=== PATIENT | female | born 1980 | race Hispanic/Latino ===

== ENCOUNTER 2017-12-27 12:44 | Emergency (ER) | payer BC ==
[2017-12-27 14:29] LABS: BASO % 0.2 % (0.0-2.0); EOS # 0.1 K/uL (0.0-0.7); HEMOGLOBIN 11.6 g/dL (12.0-16.0); LYMPH # 1.3 K/uL (1.0-4.3); LYMPH % 14.8 % (20.0-40.0); MEAN CELL VOLUME 86.3 fl (81.0-99.0); MEAN CORPUSCULAR HEMOGLOBIN 30.5 pg (27.0-31.0); MEAN CORPUSCULAR HGB CONC 35.3 g/dL (33.0-37.0); MEAN PLATELET VOLUME 9.8 fl (7.2-11.7); MONO # 0.3 K/uL (0.0-0.8); MONO % 3.6 % (0.0-10.0); NEUT % 80.4 % (50.0-75.0); NRBC % 0.2 % (0.0-0.0); RBC 3.82 Mil/uL (3.80-5.20); RED CELL DISTRIBUTION WIDTH 14.2 % (11.5-14.5); WHITE BLOOD COUNT 8.8 K/uL (4.8-10.8)
[2017-12-27] MEDS: Sodium Chloride 0.9% 500 ML IV STA (14:29)
[2017-12-27 14:35] LABS: BLOOD UREA NITROGEN 7 mg/dl (7-17); CALCIUM 8.9 mg/dL (8.4-10.2); GFR AFRICAN-AMERICAN > 60; GFR NON-AFRICAN AMERICAN > 60
--- NOTE | 2017-12-27 14:50 | ED PDOC ---
HPI: Chest Pain Chief Complaint (Provider): Chest pain History Per: Patient, Family History/Exam Limitations: no limitations Onset/Duration Of Symptoms: Hrs Current Symptoms Are (Timing): Better Pain Scale Rating Of: 6 Quality: Sharp Associated Symptoms: denies: Nausea, Dyspnea, Diaphoresis, Syncope Additional History Per: Patient, Family <Ame Burciaga - Last Filed: 12/27/17 14:53> <Timmy Gunter - Last Filed: 12/27/17 15:22> Time Seen by Provider: 12/27/17 13:31 Chief Complaint (Nursing): Chest Pain Additional Complaint(s): 37 y/o female with no significant PMhx presents to Ed complaining of chest pain. patient states that today morning while she was sitting on the computer, she started having a sudden chest pain, abd pain, upper back pain radiating to her neck, and head. Denies dizziness, N/V, diaphoresis, palpitation or other associated complains. Patient states that the abdominal pain, and back pain has resolved, but still having chest pain, however has improved in intensity. Denies SOB, cough, palpitations. Also reports 2 episodes of watery non bloody diarrheas this morning. Denies urinary symptoms. Patient is at 22 weeks of GA, and denies any complications during prior or current . Denies vaginal bleeding, LOC or contractions. Reports good movements. (Ame Burciaga) Supervising Attending Note <Ame Burciaga - Last Filed: 12/27/17 14:53> - Supervising Attending Note The Documented history was done by the: Physician Plastic Machine Operator The documented physical exam was done by the: Physician Plastic Machine Operator The documented procedures were done by the: Physician Plastic Machine Operator - Attestation: I have personally seen and examined this patient.: Yes I have fully participated in the care of the patient.: Yes I have reviewed all pertinent clinical information: Yes <Timmy Gunter - Last Filed: 12/27/17 15:22> - Notes: Notes:: Chest pain. 22 wks preg. (Timmy Gunter) Past Medical History - Medical History PMH: No Chronic Diseases - Surgical History Surgical History: Cholecystectomy, Other surgeries: Umbilical hernia, right foot surgery <Ame Burciaga - Last Filed: 12/27/17 14:53> Reviewed: Nursing Documentation, Vital Signs - Medical History PMH: No Chronic Diseases - Family History Family History: States: Unknown Family Hx <Timmy Gunter - Last Filed: 12/27/17 15:22> Vital Signs: Last Vital Signs Temp 98.9 F 12/27/17 12:53 Pulse 99 H 12/27/17 12:53 Resp 18 12/27/17 12:53 BP 132/79 12/27/17 12:53 Pulse Ox 99 12/27/17 15:08 - Allergies Allergies/Adverse Reactions: Allergies Allergy/AdvReac Type Severity Reaction Status Date / Time Penicillins Allergy RASH Verified 12/27/17 12:52 RUPERTO Risk Score for UA/NSTEMI - RUPERTO Risk Score Age > 64: NO 3 or more CAD Risk Factors: NO Known CAD (Stenosis greater than 50%): NO Aspirin use in past 7 days: NO Severe Angina: NO EKG ST changes greater than 0.5mm: NO RUPERTO Score: 0 Risk %: 5% <Ame Burciaga - Last Filed: 12/27/17 14:53> Curb-65 Severity Score - CURB-65 Severity Score Confusion: No Respiratory Rate greater than/equal to 30: No Systolic BP <90 or Diastolic BP less than/equal 60mmHg: No Age >64: No Curb-65 Score: 0 Percentage 30-day mortality: 0.6% <Ame Burciaga - Last Filed: 12/27/17 14:53> Wells Criteria for PE - Wells Criteria for Pulmonary Embolism Clinical Signs and Symptoms of DVT: No P.E is #1 Diagnosis, or Equally Likely: Yes Heart Rate >100: No Immobilization at least 3 days;Surgery previous 4 weeks: No Previous, objectively diagnosed PE or DVT: No Hemoptysis: No Malignancy w/treatment within 6 months, or palliative: No Total Score: 1 <Ame Burciaga - Last Filed: 12/27/17 14:53> Review of Systems ROS Statement: Except As Marked, All Systems Reviewed And Found Negative (as per HPI) <Ame Burciaga - Last Filed: 12/27/17 14:53> Cardiovascular: Positive for: Chest Pain <Timmy Gunter - Last Filed: 12/27/17 15:22> Physical Exam - Reviewed Nursing Documentation Reviewed: Yes Vital Signs Reviewed: Yes - Physical Exam Appears: Positive for: Non-toxic, No Acute Distress Head Exam: Positive for: ATRAUMATIC, NORMAL INSPECTION Skin: Positive for: Normal Color, Warm, Dry Eye Exam: Positive for: Normal appearance, EOMI, PERRL ENT: Positive for: Normal ENT Inspection Neck: Positive for: Normal, Supple Cardiovascular/Chest: Positive for: Regular Rate, Rhythm, Other (mild tenderness to palpation of right upper chest). Negative for: Edema, Gallop, Murmur, Irregularly Irregular Respiratory: Positive for: Normal Breath Sounds. Negative for: Decreased Breath Sounds, Accessory Muscle Use, Crackles, Rales, Rhonchi, Wheezing, Respiratory Distress Gastrointestinal/Abdominal: Positive for: Bowel Sounds, Soft. Negative for: Tenderness, Distended, Guarding, Rebound Back: Positive for: Normal Inspection. Negative for: L CVA Tenderness, R CVA Tenderness Extremity: Negative for: Pedal Edema, Calf Tenderness Neurologic/Psych: Positive for: Alert, pipe coverer and insulator II-XII (grossly intact), Oriented <Ame Burciaga - Last Filed: 12/27/17 14:53> - Physical Exam Cardiovascular/Chest: Positive for: Regular Rate, Rhythm Respiratory: Positive for: Normal Breath Sounds Gastrointestinal/Abdominal: Positive for: Bowel Sounds <Timmy Gunter - Last Filed: 12/27/17 15:22> - Laboratory Results Result Diagrams: 12/27/17 14:13 12/27/17 14:13 - ECG O2 Sat by Pulse Oximetry: 99 <Ame Burciaga - Last Filed: 12/27/17 14:53> - Laboratory Results Result Diagrams: 12/27/17 14:13 12/27/17 14:13 Interpretation Of Abn Labs: no acute <Timmy Gunter - Last Filed: 12/27/17 15:22> - Progress ED Course And Treament: 1521: Stable. Dr. Padilla to take over care. Fu on labs and imaging. (Timmy Gunter) Medical Decision Making <Ame Burciaga - Last Filed: 12/27/17 14:53> <Timmy Gunter - Last Filed: 12/27/17 15:22> Medical Decision Making: Chest pain -R/O PE in -EKG done showed NSR, HR: 98/min -after Dr. Gunter discussed risk and benefit of angio Ct scan to r/o PE, patient decides to go for Chest CT angio -lab work, f/u results -Chest CT angio -case discussed with Dr. Gunter (Ame Burciaga) Disposition <Ame Burciaga - Last Filed: 12/27/17 14:53> - Patient ED Disposition Is Patient to be Admitted: Transfer of Care - Disposition Disposition Time: 15:21 Patient Signed Over To: Lainey Padilla <Timmy Gunter - Last Filed: 12/27/17 15:22> - Clinical Impression Clinical Impression: Chest pain - Disposition Condition: STABLE
[2017-12-27 14:51] LABS: PARTIAL THROMBOPLASTIN TIME 23.7 Seconds (25.6-37.1); PROTHROMBIN TIME 10.8 Seconds (9.8-13.1)
[2017-12-27] MEDS ORDERED: Iodixanol 320 MG/ML 100 ML BOTTLE IV ONE (16:07)
[2017-12-27] MEDS ORDERED: Sodium Chloride 0.9% 50 ML IV ONE (16:08)
--- NOTE | 2017-12-27 16:46 | CT ---
PROCEDURE: CT Chest with contrast (Pulmonary Angiogram) HISTORY: Chest pain COMPARISON: None available. TECHNIQUE: Axial computed tomography images were obtained of the chest in the pulmonary arterial phase of enhancement. Coronal and sagittal reformatted images were created and reviewed. Intravenous contrast dose: Radiation dose: Total exam DLP = 359.29 mGy-cm. This CT exam was performed using one or more of the following dose reduction techniques: Automated exposure control, adjustment of the mA and/or kV according to patient size, and/or use of iterative reconstruction technique. FINDINGS: PULMONARY ARTERIES: The visualized pulmonary trunk, right and left main, lobar, segmental and proximal subsegmental branches of the pulmonary arteries are well opacified with no definitive filling defects seen suggest acute central pulmonary embolus. Pulmonary trunk measures approximately 3.1 cm. AORTA: No acute findings. No thoracic aortic aneurysm. Ascending thoracic aorta measures approximately 3.4 cm and descending thoracic aorta measures approximately 2.3 cm. . Three-vessel arch. LUNGS: Unremarkable. No nodule, mass or pulmonary consolidation. PLEURAL SPACES: Unremarkable. No effusion or pneumothorax. HEART: Heart size normal. No significant pericardial effusion. LYMPH NODES: No significant mediastinal hilar adenopathy. The central airways midline and patent. No large central endoluminal lesions. . There is a small hiatal hernia with wall thickening of the distal esophagus likely due to protrusion of gastric mucosa. Possibility of esophagitis not excluded. BONES, CHEST WALL: Unremarkable. No fracture or destructive lesion OTHER FINDINGS: Unremarkable. IMPRESSION: No evidence of acute central pulmonary embolus.
--- NOTE | 2017-12-27 17:10 | ED PDOC ---
- Laboratory Results Result Diagrams: 12/27/17 14:13 12/27/17 14:13 - ECG O2 Sat by Pulse Oximetry: 99 <Ame Burciaga - Last Filed: 12/27/17 22:54> - Laboratory Results Result Diagrams: 12/27/17 14:13 12/27/17 14:13 <Lainey Padilla - Last Filed: 12/27/17 23:03> Medical Decision Making <Ame Burciaga - Last Filed: 12/27/17 22:54> <Lainey Padilla - Last Filed: 12/27/17 23:03> Medical Decision Making: lab work results unremarkable. Chest CT angio reported as negative for PE. Patient is stable for DC home with recommended f/u with PMD and BAKERY ASSOCIATE/OB. Patient requested a copy of the results of her lab work, EKG, and Chest CT angio. Results handle to patient as per her request. F/u with PMD, and BAKERY ASSOCIATE/OB in 2-3 days. ER precautions given. (Ame Burciaga) Disposition Discussed With Dr.: Lainey LEVY Present On Arrival: None - Disposition Disposition: Routine/Home Disposition Time: 17:10 <Ame Burciaga - Last Filed: 12/27/17 22:54> <Lainey Padilla - Last Filed: 12/27/17 23:03> - Clinical Impression Clinical Impression: Chest pain - Disposition Condition: STABLE Additional Instructions: F/u with BAKERY ASSOCIATE/OB specialist in 2-3 days. Results discussed with patient. ER precautions given Lab work, EKG, and Chest CT scan results were printed and handle to patient as per her request. Prescriptions: Cyclobenzaprine [Flexeril] 5 mg PO Q8 PRN #10 tab PRN Reason: muscle spasm Famotidine [Pepcid] 40 mg PO DAILY PRN #30 tab PRN Reason: reflux Forms: [facility] (Lithuanian) Attending/Attestation - Attestation I have personally seen and examined this patient.: Yes I have fully participated in the care of the patient.: Yes I have reviewed all pertinent clinical information: Yes <Lainey Padilla - Last Filed: 12/27/17 23:03>
--- NOTE | 2017-12-27 17:23 | CARD ---
APPROVED REPORT EKG Measurement Heart [id number] <Conclusion> Normal sinus rhythm Possible Left atrial enlargement Borderline ECG
[2017-12-27 17:33] VITALS: BP 128/78; PULSE 78; RESP 19; TEMP 97
[2017-12-27 22:52] VITALS: O2SAT 99
== END 2017-12-27 17:33 | disposition home or self-care (01) ==
LOC: H.ER 12:44
DX: R07.89 Other chest pain (principal)
CPT/HCPCS: 71275; 80048; 84484; 85025; 85610; 85730; 93005; 99282; J7040; Q9967